=== PATIENT | female | born 1945 | race Caucasian/White ===

== ENCOUNTER 2023-12-05 11:42 | Emergency (ER) | payer MEDICARE, OTHER, SELFPAY ==
[2023-12-05 11:50] VITALS: BP 133/67
--- NOTE | 2023-12-05 12:46 | ED.MUSCINJ ---
HPI-Injury
General
Chief Complaint: Musculo-Skeletal Complaint
Source: patient
Exam Limitations: none
Time Seen by Provider: 12/05/23 12:23
Travel History
Have you had any contact with someone who has COVID-19?: No
Do you have any symptoms of coronavirus? Fever > 100 degrees, chills, cough, shortness of breath, sore throat, loss of taste or smell, muscle aches, or headache?: No
History of Present Illness-Injury
Initial Injury comments:
78-year-old female presents complaining of right knee pain worsening yesterday after a fall. She has been dealing with knee discomfort for several days but seem to get better however following yesterday increased pain diffusely about the knee.
Pain is made worse with motion and bearing weight. She is on Plavix. No other complaints at this time
Past History
Past History
ED Past Medical History: Asthma, GERD, Hypercholesterolemia and Other (Osteopenia , IBS States that she diagnosed herself)
ED Past Surgical History: Appendectomy and Gynecological (Hysterectomy)
Social History
Tobacco: Non-smoker
Alcohol: Daily (bourbon and water 2 glasses)
Drug: None
Personal:
Living: with family
Employment: Retired
Family History
Family History: Hypertension
Phy Exam
Physical Exam
Physical Exam:
General: Well-appearing female no acute respiratory distress
HEENT: Normocephalic atraumatic
Musculoskeletal exam: Right knee with full extension flexion to 90 degrees no effusion able to straight leg raise against gravity. Tender to the lateral and medial aspect of the knee posterior joint line nontender. Increased pain with varus and
valgus stress testing
Skin is intact no laceration
Injury Course
Orders/Labs/Results
Orders:
Orders
12/05/23 11:54
Knee, Right 4 or More Views [CR Knee- Right 4 Or More View*] Urgent
Comment:
Reason For Exam: fall
12/05/23 12:44
Knee Immobilizer Right-Treatme ONCE
Prednisone [Deltasone] 50 mg PO NOW STA
MDM/Problems Addressed
Differential Diagnosis Includes:
Right knee pain. Differential could include sprain versus strain versus fracture versus DJD
X-rays of the right knee were obtained through triage which I personally visualized and are negative for acute bony abnormality. Suspect underlying sprain.
Patient cannot do NSAIDs but will prescribe anti-inflammatories in the form of prednisone. Immobilizer applied will be referred back to her orthopedic doctor for further evaluation
*Critical Care Note
Total Time (30-74mins, 75-104mins- exclusive of procedures): Not Applicable
ED Attending Note
-
Portions of this chart may have been created with voice recognition software.� Occasional wrong word or��sound alike� substitutions may have occurred due to the inherent limitations of voice recognition software.
Discharge Plan
Departure
Patient Disposition: Home (Routine Discharge)
Date of Disposition: 12/05/23
Time of Disposition: 12:48
Patient with high blood pressure during this ER visit?: No
Discharge Problem:
Knee sprain
Instructions: Muscle and Bone Pain (DC)
Prescriptions:
New
prednisone 20 mg tablet
40 mg PO DAILY 5 Days Qty: 10 0RF
No Action
diphenhydramine HCl [Banophen] 25 MG capsule
50 mg PO HS
acetaminophen 325 MG tablet
650 mg PO Q4HPRN PRN (Reason: mild pain or fever) Qty: 0 0RF
hydrocodone-acetaminophen 5-325 mg Tablet
1 tab PO PRN PRN (Reason: pain)
cholecalciferol (vitamin D3) [Vitamin D3] 50 mcg (2,000 unit) Capsule
50 mcg PO DAILY
pantoprazole 40 MG tablet,delayed release (DR/EC)
40 mg PO PRN PRN (Reason: GERD)
albuterol sulfate [Albuterol Sulfate Hfa] 18 GM HFA aerosol inhaler
2 puff inhalation Q4 PRN (Reason: SOB)
clopidogrel [Plavix] 75 mg Tablet
75 mg PO DAILY
fluoxetine [Prozac] 20 mg Capsule
20 mg PO DAILY
rosuvastatin 20 mg Tablet
20 mg PO HS
triamterene
1 cap PO DAILY
Activity Restrictions/Additional Instructions:
Rest. Use brace for support. Use steroid as directed. Follow-up with orthopedics otherwise
Interventions
Interventions:
*Risk Screen - Suicide Last Done: 12/05/23 11:50
*General Assessment Last Done: 12/05/23 11:50
*Neglect/Abuse Screening Last Done: 12/05/23 11:50
ED-Musculoskeletal Assessment Last Done: 12/05/23 12:06
[2023-12-05] MEDS: DELTASONE 50 MG PO (13:09)
== END 2023-12-05 13:20 | disposition home or self-care (01) ==
LOC: EMR 11:42
PROVIDERS: EMERGENCY PHYSICIAN Physician Assistant; FAMILY PHYSICIAN Internal Medicine
DX: S83.91XA Sprain of unspecified site of right knee, initial encounter (principal); W19.XXXA Unspecified fall, initial encounter; Z79.02 Long term (current) use of antithrombotics/antiplatelets
CPT/HCPCS: 99283; 29505; 73564

== ENCOUNTER → 2024-01-23 11:29 | Outpatient (REF) | payer MEDICARE, OTHER, SELFPAY | LOC: WDC 11:29 | PROVIDERS: ATTENDING PHYSICIAN Internal Medicine | DX: Z12.31 Encounter for screening mammogram for malignant neoplasm of breast (principal) | CPT/HCPCS: 77063; 77067 ==

== ENCOUNTER → 2024-04-24 08:31 | Outpatient (REF) | payer MEDICARE, OTHER, SELFPAY | LOC: RAD 08:31 | PROVIDERS: ATTENDING PHYSICIAN Internal Medicine Rheumatology; FAMILY PHYSICIAN Internal Medicine | DX: M81.0 Age-related osteoporosis without current pathological fracture (principal) | CPT/HCPCS: 77080 ==

== ENCOUNTER → 2024-05-18 09:15 | Outpatient (REF) | payer MEDICARE, OTHER, SELFPAY ==
[2024-05-18 11:00] LABS: ALT (SGPT) 93 U/L (0-35); AST (SGOT) 57 U/L (14-36); Albumin 4.1 g/dl (3.5-5.0); Alkaline Phosphatase 78 U/L (38-126); Blood Urea Nitrogen 17 mg/dl (7-17); Calcium 9.5 mg/dl (8.4-10.2); Carbon Dioxide 25 mmol/L (22-30); Chloride 104 mmol/L (98-107); Glucose 90 mg/dl (70-99); Potassium 4.6 mmol/L (3.5-5.1); Sodium 137 mmol/L (135-145); Total Bilirubin 0.6 mg/dl (0.2-1.3); Total Protein 6.4 g/dl (6.3-8.2); eGFR > 60.00
== END ==
LOC: REG 09:15
PROVIDERS: ATTENDING PHYSICIAN Internal Medicine Rheumatology; FAMILY PHYSICIAN Internal Medicine
DX: M15.9 Polyosteoarthritis, unspecified (principal); M81.0 Age-related osteoporosis without current pathological fracture
CPT/HCPCS: 36415; 80053

== ENCOUNTER → 2024-06-29 06:24 | Day surgery (SDC) | payer MEDICARE, OTHER, SELFPAY | LOC: GI 06:24 | PROVIDERS: ATTENDING PHYSICIAN Internal Medicine Gastroenterology | DX: K64.8 Other hemorrhoids (principal); R19.4 Change in bowel habit; K57.30 Diverticulosis of large intestine without perforation or abscess without bleeding; D12.2 Benign neoplasm of ascending colon | CPT/HCPCS: 45385; 45380; 88305 ==

== ENCOUNTER → 2024-11-23 14:05 | Outpatient (REF) | payer MEDICARE, OTHER, SELFPAY ==
[2024-11-23 16:22] LABS: ALT (SGPT) 29 U/L (0-35); AST (SGOT) 26 U/L (14-36); Albumin 3.8 g/dl (3.5-5.0); Alkaline Phosphatase 74 U/L (38-126); Blood Urea Nitrogen 31 mg/dl (7-17); Calcium 9.5 mg/dl (8.4-10.2); Carbon Dioxide 29 mmol/L (22-30); Chloride 98 mmol/L (98-107); Glucose 88 mg/dl (70-99); Potassium 4.4 mmol/L (3.5-5.1); Sodium 133 mmol/L (135-145); Total Bilirubin 0.6 mg/dl (0.2-1.3); eGFR > 60.00
== END ==
LOC: REG 14:05
PROVIDERS: ATTENDING PHYSICIAN Internal Medicine Rheumatology
DX: M81.0 Age-related osteoporosis without current pathological fracture (principal)
CPT/HCPCS: 36415; 80053

== ENCOUNTER → 2025-03-01 14:27 | Outpatient (REF) | payer MEDICARE, OTHER, SELFPAY | LOC: WDC 14:27 | PROVIDERS: ATTENDING PHYSICIAN Obstetrics & Gynecology; FAMILY PHYSICIAN Internal Medicine | DX: Z12.31 Encounter for screening mammogram for malignant neoplasm of breast (principal) | CPT/HCPCS: 77063; 77067 ==

== ENCOUNTER → 2025-07-05 08:32 | Outpatient (REF) | payer MEDICARE, OTHER, SELFPAY ==
[2025-07-05 11:55] LABS: Blood Urea Nitrogen 22 mg/dl (7-17); Calcium 9.5 mg/dl (8.4-10.2); Carbon Dioxide 31 mmol/L (22-30); Chloride 99 mmol/L (98-107); Glucose 76 mg/dl (70-99); Potassium 5.0 mmol/L (3.5-5.1); Sodium 136 mmol/L (135-145); eGFR > 60.00
== END ==
LOC: SDSPAT 08:32
PROVIDERS: ATTENDING PHYSICIAN Student in an Organized Health Care Education/Training Program; FAMILY PHYSICIAN Internal Medicine
DX: S83.241A Other tear of medial meniscus, current injury, right knee, initial encounter (principal); S83.281A Other tear of lateral meniscus, current injury, right knee, initial encounter; X58.XXXA Exposure to other specified factors, initial encounter; Z01.818 Encounter for other preprocedural examination
CPT/HCPCS: 36415; 80048

== ENCOUNTER 2025-07-16 06:14 | Day surgery (SDC) | payer MEDICARE, OTHER, SELFPAY ==
[2025-07-05 14:03] VITALS: BMI 28.6
[2025-07-16] VITALS (8 sets, daily range): BP systolic 124–162; BP diastolic 59–94; BMI 28.6
[2025-07-16] MEDS: TYLENOL 1000 MG PO (12:42)
[2025-07-16] MEDS: NORMOSOL-R/PLASMALYTE-A 1000 IV (12:51)
[2025-07-16] MEDS: SUBLIMAZE 50 MCG IV ×2 (15:22→15:40)
--- NOTE | 2025-07-16 15:26 | W.IMMPOSTOP ---
Surgical Immed Post Op Note
-
Primary Surgeon: Deon Lemos MD
Assisting Surgeon:
Pre-op Diagnosis: right knee medial and lateral meniscal tears
Post-op Diagnosis: right knee medial and lateral meniscal tears
Procedure Performed: arthroscopic right knee partial medial and lateral meniscectomy
Anesthesia Type: general
Specimen / Cultures: none
Estimated Blood Loss: 1mL
Complications: none apparent
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
Operative dictation #: [id number]
== END 2025-07-16 16:54 | disposition home or self-care (01) ==
LOC: SDS 06:14
PROVIDERS: ATTENDING PHYSICIAN Student in an Organized Health Care Education/Training Program; FAMILY PHYSICIAN Internal Medicine
DX: S83.241A Other tear of medial meniscus, current injury, right knee, initial encounter (principal); S83.281A Other tear of lateral meniscus, current injury, right knee, initial encounter; X58.XXXA Exposure to other specified factors, initial encounter
CPT/HCPCS: 29880

== ENCOUNTER → 2025-08-27 10:10 | Outpatient (REF) | payer MEDICARE, OTHER, SELFPAY | LOC: WDC 10:10 | PROVIDERS: ATTENDING PHYSICIAN Obstetrics & Gynecology; FAMILY PHYSICIAN Internal Medicine | DX: R92.2 Inconclusive mammogram (principal) | CPT/HCPCS: 76641 ==